=== PATIENT | male | born 1945 | race Caucasian/White ===

== ENCOUNTER 2024-10-21 11:57 | Emergency (ER) | payer OTHER, SELFPAY ==
[2024-10-21 12:01] VITALS: BP 111/75
--- NOTE | 2024-10-21 13:07 | ED.GENMED ---
History of Present Illness
<MARTHA Sullivan - Last Filed: 10/21/24 16:55>
General
Chief Complaint: Cough
Source: patient
Exam Limitations: none
Time Seen by Provider: 10/21/24 12:23
Nursing documentation reviewed up to this point in time: agreed with
History of Present Illness
History of Present Illness:
Patient is an 79-year-old male with past medical history of chronic A-fib, Eliquis, lung cancer with right lower lobe resection done 2 years ago at [facility]. Patient is followed by supervisor customer complaint service at [place] Dr. Rubin.
Patient reports he had episode of coughing up blood a month ago which was a small amount however coughed up more blood today.
Most of his care is at [facility] however he was bringing his girlfriend to have surgery here dorsum which is what prompted him to come to the ER.
He denies chest pain. He reports he always has some mild shortness of breath and this is not new.
Patient is a former smoker. He denies any weakness fever chills. He has had a cough. He denies shortness of breath now.
Review of Systems
<MARTHA Sullivan - Last Filed: 10/21/24 16:55>
Review of Systems
Allergies reviewed?: Yes
All Other Systems: ROS reviewed and negative except as documented in HPI and ROS
Constitutional: Reports no symptoms
Respiratory: Reports hemoptysis and trouble breathing (chronic mild))
Cardiac: Reports no symptoms
ABD/GI: Reports no symptoms
: Reports no symptoms
Musculoskeletal: Reports no symptoms
Skin: Reports no symptoms
Neurological: Reports no symptoms
Psychiatric: Reports no symptoms
Phy Exam
<MARTHA Sullivan - Last Filed: 10/21/24 16:55>
General Physical Exam
General Presentation: well appearing
General age: appears stated age and appears older than age
General Skin: warm
General Habitus: normal
General Mental: alert
Cardiovascular Exam
Cardiovascular Exam: regular rate/rhythm, no murmur and normal peripheral pulses
Pulmonary Exam
Pulmonary Exam: lungs clear and no respiratory distress
Neurological Exam
Neurological Exam: alert and oriented x3
Musculoskeletal Exam
Musculoskeletal Exam: full ROM
Skin Exam
Skin Exam: normal color and warm/dry
Psychiatric Exam
Psychiatric Exam: normal mood/affect
Course
<MARTHA Sullivan - Last Filed: 10/21/24 16:55>
Orders/Labs/Results
Orders:
Orders
10/21/24 13:06
Electrocardiogram (*1) Stat
Reason for Study: Abdominal Pain
Cardiac Monitoring- Treatment ONCE
EKG- Treatment ONCE
IV Insert/Care/Rem.- Treatment PRN
10/21/24 13:11
CT Chest PE Study Urgent
Comment:
Reason For Exam: hemoptysis
10/21/24 13:34
Complete Blood Count/With Diff Urgent
Comprehensive Metabolic Panel Urgent
PTT Urgent
Prothrombin Time Urgent
10/21/24 15:08
0.9% Sodium Chloride 1000 ml [Nss] 1,000 ml IV BOLUS
Abnormal Lab Results
10/21/24
13:34
WBC 4.6 L 10^3/uL
(4.8-10.8)
RBC 3.54 L 10^6/uL
(4.70-6.10)
Hgb 9.3 L g/dL
(13.0-18.0)
Hct 30.7 L %
(39.0-52.0)
MCH 26.3 L pg
(27.0-31.0)
MCHC 30.3 L g/dL
(33.0-37.0)
RDW 19.4 H %
(11.5-14.5)
MPV 10.6 H fL
(7.4-10.4)
Absolute Lymphs (auto) 0.5 L 10^3/uL
(1.2-3.4)
Lymphocytes % 10.1 L %
(20.5-51.1)
Monocytes % 12.3 H %
(1.7-9.3)
PT 20.9 H Sec
(11.4-14.6)
APTT 40.1 H Sec
(23.4-35.0)
Carbon Dioxide 31 H mmol/L
(22-30)
Creatinine 0.6 L mg/dL
(0.7-1.3)
Total Bilirubin 1.4 H mg/dl
(0.2-1.3)
Alkaline Phosphatase 192 H U/L
(38-126)
Total Protein 6.1 L g/dl
(6.3-8.2)
Albumin 3.4 L g/dl
(3.5-5.0)
10/21/24 13:34
10/21/24 13:34
Vital Signs
Initial and Last Documented VS:
Initial Vital Signs
Temp Pulse Resp BP Pulse Ox
98 F 93 16 111/75 98
10/21/24 12:01 10/21/24 12:01 10/21/24 12:01 10/21/24 12:01 10/21/24 12:01
Last Documented Vital Signs
Temp Pulse Resp BP Pulse Ox
98 F 91 20 144/91 97
10/21/24 12:01 10/21/24 16:15 10/21/24 16:15 10/21/24 16:00 10/21/24 16:31
Department Manager consulted with Physician
Department Manager consulted with physician?: Yes
Name of Physician Consulted: Dr Mendieta
<Pennie Mendieta, DO - Last Filed: 10/21/24 16:50>
Orders/Labs/Results
Orders:
Orders
10/21/24 13:06
Electrocardiogram (*1) Stat
Reason for Study: Abdominal Pain
Cardiac Monitoring- Treatment ONCE
EKG- Treatment ONCE
IV Insert/Care/Rem.- Treatment PRN
10/21/24 13:11
CT Chest PE Study Urgent
Comment:
Reason For Exam: hemoptysis
10/21/24 13:34
Complete Blood Count/With Diff Urgent
Comprehensive Metabolic Panel Urgent
PTT Urgent
Prothrombin Time Urgent
10/21/24 15:08
0.9% Sodium Chloride 1000 ml [Nss] 1,000 ml IV BOLUS
Abnormal Lab Results
10/21/24
13:34
WBC 4.6 L 10^3/uL
(4.8-10.8)
RBC 3.54 L 10^6/uL
(4.70-6.10)
Hgb 9.3 L g/dL
(13.0-18.0)
Hct 30.7 L %
(39.0-52.0)
MCH 26.3 L pg
(27.0-31.0)
MCHC 30.3 L g/dL
(33.0-37.0)
RDW 19.4 H %
(11.5-14.5)
MPV 10.6 H fL
(7.4-10.4)
Absolute Lymphs (auto) 0.5 L 10^3/uL
(1.2-3.4)
Lymphocytes % 10.1 L %
(20.5-51.1)
Monocytes % 12.3 H %
(1.7-9.3)
PT 20.9 H Sec
(11.4-14.6)
APTT 40.1 H Sec
(23.4-35.0)
Carbon Dioxide 31 H mmol/L
(22-30)
Creatinine 0.6 L mg/dL
(0.7-1.3)
Total Bilirubin 1.4 H mg/dl
(0.2-1.3)
Alkaline Phosphatase 192 H U/L
(38-126)
Total Protein 6.1 L g/dl
(6.3-8.2)
Albumin 3.4 L g/dl
(3.5-5.0)
10/21/24 13:34
10/21/24 13:34
Vital Signs
Initial and Last Documented VS:
Initial Vital Signs
Temp Pulse Resp BP Pulse Ox
98 F 93 16 111/75 98
10/21/24 12:01 10/21/24 12:01 10/21/24 12:01 10/21/24 12:01 10/21/24 12:01
Last Documented Vital Signs
Temp Pulse Resp BP Pulse Ox
98 F 91 20 144/91 97
10/21/24 12:01 10/21/24 16:15 10/21/24 16:15 10/21/24 16:00 10/21/24 16:31
<MARTHA Sullivan - Last Filed: 10/21/24 16:55>
MDM/Problems Addressed
MDM/Problems Addressed:
Patient is an 79-year-old male with history of right lung cancer with right lower lobectomy at [place] followed by pulmonology at [facility] presents to the ER for evaluation of hemoptysis.
Patient is not from the area however presented here because his girlfriend was having surgery here. He has had a cough intermittently for the past couple weeks and noticed several episodes of hemoptysis. He has chronically mild shortness of breath
but denies any obvious shortness of breath here. He denies any recent fever or chills. He presents awake alert no acute distress. He is on Eliquis for A-fib that is chronic. He is afebrile his white count is 4.6 hemoglobin is low at 9.3; his
platelets are normal, his kidney function is normal.
CAT scan was done here does show diffuse irregular right-sided pleural thickening with extensive interlobular septal thickening within the right lung with multiple irregular linear and nodular opacities scattered. There is small right-sided pleural
effusion there are several ill-defined and mildly enlarged hilar and mediastinal lymph nodes suspicious for neoplastic process I did review this with patient. He is in no acute distress here he is stable for discharge home to follow-up with his
supervisor customer complaint service Dr. Rubin.
He is in no acute distress and not hypoxic nontachycardic not short of breath, no episodes of hemoptysis here in the ER.
<MARTHA Sullivan - Last Filed: 10/21/24 16:55>
*Radiology
Radiology exam reviewed: radiology read reviewed (reviewed CT with radiology )
*Pulse Oximetry
Patient hypoxic: no
*Critical Care Note
Total Time (30-74mins, 75-104mins- exclusive of procedures): Not Applicable
ED Attending Note
<MARTHA Sullivan - Last Filed: 10/21/24 16:55>
-
Portions of this chart may have been created with voice recognition software.� Occasional wrong word or��sound alike� substitutions may have occurred due to the inherent limitations of voice recognition software.
<Pennie Mendieta DO - Last Filed: 10/21/24 16:50>
ED Attending Note
Patient seen and examined by attending physician: Yes
I performed the substantive portion of visit, reviewed & personally made and approve the management plan that is documented in note by myself or MARY.: Yes
I performed a history and physical exam of patient and discussed management with resident, I reviewed resident's note and agree with documented findings and plan of care.: Yes
ED Attending Note:
79-year-old male with prior history of lung cancer status post right lower lobe resection a few years ago presenting to the emergency department for hemoptysis. Patient reports for the past few days he has had issues clearing his throat. Today he
was having some violent coughing, coughed up some blood-tinged mucus. He follows with [facility] for his lung cancer, which has been stable. As of recent, they found something abnormal on his right lung, was scheduled for a biopsy, however
were unable to complete the biopsy. This was about 3 to 4 weeks ago, and has not yet followed up with his oncologist. Reports dyspnea at baseline, no increased dyspnea. Denies fever. Vital signs are normal.
On exam patient is in no acute respiratory distress, no increased work of breathing. Patient initially seen by MARY, and plan discussed with me. In the setting of history of cancer with hemoptysis, plan for CT PE imaging for rule out PE. Patient
afebrile, nontoxic without concern for bacterial or systemic infection. Plan for also screening laboratory analysis.
16:40 - Labs relatively unremarkable. CT PE without evidence of PE, however does show findings concerning for right-sided lung cancer. Did discuss these findings with patient. Suspect a mopped assist could be from underlying cancer versus
bronchial irritation from coughing. Patient otherwise remains hemodynamically stable. From a pulmonary perspective, feel stable for discharge, however with close interval follow-up with oncology. Results provided to patient including CT report.
Strict return precautions communicated and patient verbalized understanding
Discharge Plan
Departure
Patient Disposition: Home (Routine Discharge)
Date of Disposition: 10/21/24
Time of Disposition: 16:35
Patient with high blood pressure during this ER visit?: No
Condition: Fair
Covid-19: Not Applicable
Discharge Problem:
Hemoptysis
Instructions: Coughing up blood, BLOOD PRESSURE
Referrals:
Stoney Henson MD [Family Provider] -
Activity Restrictions/Additional Instructions:
As discussed please follow-up with your supervisor customer complaint service for further evaluation of coughing up blood and findings on your CAT scan.
As discussed CAT scan findings are concerning for lung cancer on the right lung. Return to the ER if any worsening of symptoms including increased coughing up blood, difficulty breathing fevers or any further concerns.
Interventions
Interventions:
*Risk Screen - Suicide Last Done: 10/21/24 13:49
*General Assessment Last Done: 10/21/24 13:49
*Neglect/Abuse Screening Last Done: 10/21/24 13:49
*ED- Fall Risk Assessment Last Done: 10/21/24 13:49
*ED COVID-19 Vaccine History Last Done: 10/21/24 13:49
ED- Pulmonary Assessment Last Done: 10/21/24 13:49
Discharge Date and Time
Print Language: CHADIAN
[2024-10-21 13:27] VITALS: BP 129/91
[2024-10-21 13:44] LABS: % Basophils 1.1 % (0-2); % Eosinophils 1.8 % (0-6); % Immature Granulocytes 0.2 % (0-0.5); % Lymphocytes 10.1 % (20.5-51.1); % Monocytes 12.3 % (1.7-9.3); % Neutrophils 74.5 % (42.2-75.2); Absolute Basophils 0.1 10^3/uL (0-0.2); Absolute Eosinophils 0.1 10^3/uL (0-0.7); Absolute Lymphocytes 0.5 10^3/uL (1.2-3.4); Absolute Monocytes 0.6 10^3/uL (0.1-0.6); Absolute Neutrophils 3.4 10^3/uL (1.4-6.5); Hematocrit 30.7 % (39.0-52.0); Hemoglobin 9.3 g/dL (13.0-18.0); Mean Corp Hgb Conc. 30.3 g/dL (33.0-37.0); Mean Corpuscular Hgb 26.3 pg (27.0-31.0); Mean Corpuscular Volume 86.7 fL (80.0-94.0); Mean Platelet Volume 10.6 fL (7.4-10.4); Nucleated Red Blood Cells % 0 % (-); Platelet Count 149 10^3/uL (130-400); Red Blood Cell Count 3.54 10^6/uL (4.70-6.10); Red Cell Dist. Width 19.4 % (11.5-14.5); White Blood Cell Count 4.6 10^3/uL (4.8-10.8)
[2024-10-21 13:49] VITALS: BMI 30.6
[2024-10-21 13:56] LABS: ALT (SGPT) 24 U/L (0-50); AST (SGOT) 33 U/L (17-59); Albumin 3.4 g/dl (3.5-5.0); Alkaline Phosphatase 192 U/L (38-126); Blood Urea Nitrogen 17 mg/dl (9-20); Calcium 8.8 mg/dl (8.4-10.2); Carbon Dioxide 31 mmol/L (22-30); Chloride 103 mmol/L (98-107); Glucose 96 mg/dl (70-99); INR 1.79; PT 20.9 Sec (11.4-14.6); Potassium 4.3 mmol/L (3.5-5.1); Sodium 138 mmol/L (135-145); Total Bilirubin 1.4 mg/dl (0.2-1.3); Total Protein 6.1 g/dl (6.3-8.2); eGFR > 60.00
[2024-10-21 13:57] LABS: APTT 40.1 Sec (23.4-35.0)
[2024-10-21 14:00] VITALS: BP 147/88
--- NOTE | 2024-10-21 14:46 | EDRN ---
Dr. Mendieta and Nikky Loya REVENUE DIRECTOR described mucous coughed up by pt. Mucous was bloody, red throughout but no clot. BOth said pt can drink water and pt given small cup of water.
[2024-10-21 15:00] VITALS: BP 132/99
[2024-10-21] MEDS: NSS 1000 IV (15:48)
[2024-10-21 16:00] VITALS: BP 144/91
== END 2024-10-21 17:14 | disposition home or self-care (01) ==
LOC: EMR 11:57
PROVIDERS: Nurse Practitioner; EMERGENCY PHYSICIAN Student in an Organized Health Care Education/Training Program; FAMILY PHYSICIAN Internal Medicine
DX: R04.2 Hemoptysis (principal); I48.91 Unspecified atrial fibrillation; Z79.01 Long term (current) use of anticoagulants; Z87.891 Personal history of nicotine dependence; Z90.2 Acquired absence of lung [part of]
CPT/HCPCS: 99284; 96360; 71275; 80053; 85025; 85610; 85730; 93005; Q9967